=== PATIENT | female | born 1945 | race Caucasian/White ===

== ENCOUNTER 2020-07-06 12:57 | Inpatient (IN) | payer MEDICARE, SELFPAY ==
[2020-07-06] VITALS (19 sets, daily range): BP systolic 116–217; BP diastolic 49–116; PULSE 36–89; RESP 18–23; TEMP 36.6–37; O2SAT 90–100; BMI 34.2; BMI 32.5
--- NOTE | 2020-07-06 | CA_ITS ---
APPROVED REPORT EXAM: Comprehensive 2D, Doppler, and color-flow Echocardiogram Associate Artistic Director: Eri Silverman, RT(R) Ht: 5 ft 0 in Wt: 175lbs BSA: 1.76 BP: 217/116 mmHg Indications: bradycardia, passed out and fell with trauma to elbow 2D Dimensions LVOT 1.96 cm (M/F) 1.5-2.5 M-Mode Dimensions RVDd 2.11 cm (0.9-2.6) LA Diam 4.26 cm (1.9-4.0) LVDd 4.26 cm (3.5-5.7) Ao Diam 2.68 cm (2.0-3.7) LVDs 3.55 cm (3.5-5.7) IVSd 1.07 cm (0.6-1.1) PWd 0.97 cm (0.6-1.1) EF (Teich) 35.30% FS 16.70% EDV (Teich) 81.30 mL ESV (Teich) 52.60 mL LV Diastology E Decel Time 193.00 (160-240 msec) E/A Ratio 1.3 MED E' 6.50 (< 7 cm/sec) E'/MED E' Ratio 19.97 (>14) LAT E' 14.40 (<10 cm/sec) E/LAT E' Ratio 9.01 (>14) Mitral Valve MV E Max Brad. 130.00 (40-130 cm/s) MV A Velocity 99.00 (40-130 cm/s) E/A Ratio 1.31 MV Decel. Time 193.00 (160-240 ms) MV PHT 57.00 ms Tricuspid Valve TR P. Velocity 375.00 cm/s RAP Estimate 10.00 mmHg RVSP 66.40 mmHg Left Ventricle Left atrium is mildly enlarged, left ventricle is normal size, mild concentric left ventricular hypertrophy, visually estimated ejection fraction approximately 50% with no obvious regional wall motion abnormality, endocardial surfaces are poorly visualized. Diastolic parameters are inconclusive. Right Ventricle Right atrium and right ventricle are normal size and contractility. Aortic Valve Aortic valve is thickened and calcified without aortic stenosis or aortic insufficiency. Mitral Valve Mitral valve leaflets are minimally thickened, there is mild mitral regurgitation. Tricuspid Valve Tricuspid valve is grossly normal, there is mild tricuspid regurgitation, tricuspid regurgitation jet velocity is inadequate for calculation of the right ventricular systolic pressure. Pulmonic Valve Pulmonic valve is poorly visualized. Great Vessels Aortic root is normal size. Pericardium No significant pericardial effusion noted. Conclusion 1. Mildly enlarged left atrium, normal left ventricular size, mild concentric left ventricular hypertrophy, visually estimated ejection fraction 50% with no obvious regional wall motion abnormality, endocardial surfaces are poorly visualized, diastolic parameters are inconclusive. 2. Mild mitral and tricuspid regurgitation. 3. No significant pericardial effusion noted. Electronically signed by : Franky Stoddard, 07/06/2020 19:55:12
--- NOTE | 2020-07-06 | IR_ITS ---
APPROVED REPORT Patient Location: [facility] Physiologist: CYNTHIA Moreno RT (R) PROCEDURES 1. Pocket formation for biventricular pacemaker generator with cardiac resynchronization/defibrillator therapy. 2. Placement of atrial sensing and pacing lead into the right atrial appendage. 3. Placement of a right ventricular sensing, pacing and shocking lead in the right ventricular apex. 4. Placement of left ventricular sensing pacing lead via the coronary sinus. 5. Permanent cardiac resynchronization therapy with ICD implantation/biventricular pacemaker. INDICATION Syncope, Ventricular Fibrilation arrest, Sudden Cardiac Survivor, Ejection Fraction 45-50%, 3rd degree AV block Informed consent was obtained prior to the procedure. COMPLICATIONS None Estimated Blood Loss: Less than 10 mls TECHNIQUE 1% Lidocaine with epinephrine used to anesthetized the left anterior aspect of the chest. Scalpel was used to make the initial cutaneous incision while electrocautery was used to dissect down tinto the fascia. The fascia was lifted off the pectoralis muscle and digitally manipulated creating a pocket for the defibrillator. The patient was then placed in Trendelenburg position and the subclavian vein was accessed 3 times via the Selinger technique. A 8 Mosotho sheath was placed under fluoroscopic guidance into the subclavian vein. The dilator was removed from the sheath. Using fluoroscopic guidance, the ventricular lead was placed into the right ventricular apex, screwed and secured into place. Electronic interrogation proved acceptable thresholds and voltage within the lead. Using 3-0 silk, the ventricular lead was then secured into place and sheath peeled away. Following this, a 9.5 Mosotho sheath and dilator was then placed over one of the wires while keeping the other wire in place within the subclavian vein. The dilator was removed from the sheath. Using fluoroscopic guidance, contrast was used to visualize the coronary sinus, the left ventricular lead was placed into the coronary sinus. Electronic interrogation proved acceptable thresholds and voltage within the lead. Using 3-0 silk, the left ventricular lead was then secured into place and sheath peeled away.An additional 6 Mosotho fresh sheath and dilator was placed over the existing wire. Using fluoroscopic guidance, the atrial lead was then placed into the right atrial appendage and screwed and secured in place. Electrical interrogation demonstrated acceptable thresholds and voltage number. The atrial lead was then secured into place using 3-0 silk and sheath peeled away. 1 gram of Ancef was used to flush the pocket. All 3 leads were connected to generator and tested via computer. The defibrillator then secured to the fascia. Monocryl was used to close the subcutaneous layers while norma were used to close the cutaneous layer. A pressure dressing was placed and the patient was transferred to the postop holding area in stable condition for postoperative care. INTERROGATION Generator Model number: VIGILANT X4 [employer]IOR [employer] DIRECTOR-D, G247 Generator Serial number: [id number] Atrial lead model number: INGEVITY+, 7840 Atrial lead serial number: [id number] P-wave: 3.0mV Impedence: 450 ohms Threshold: 1.0V@0.4ms Left Ventricular lead model number: ACUTITY X4 SPIRAL 86cm, 4674 Left Ventricular lead serial number: [id number] Impedence: 39 ohms Threshold: 1.0V@0.4ms Right Ventricular lead model number: KNIGHTSEN 4-FRONT 59cm, 0675 Right Ventricular lead serial number: [id number] R-wave: 12.0mV Impedence: 850 ohms Threshold: 1.0V@0.4ms Pacing Parameters: Mode: DDDR Base/Max Track: 60/130 ppm ICD Rate Cutoffs: VT: 170bpm, 5.0
--- NOTE | 2020-07-06 13:09 | XR_ITS ---
PROCEDURE: XR HUMERUS LT CLINICAL INDICATION: fall, elbow pain COMPARISON: CR XR ELBOW LT MIN 3V from 07/06/2020 FINDINGS: There is posterior dislocation of the elbow. There is an avulsion fracture between the proximal aspect of the radius and ulna. Bone of origin is undetermined based on this exam. The elbow films are very limited due to inability to properly position the patient. It does appear that there is a avulsion fracture of the olecranon process. However, this is F best questionable. There may also be an avulsion fracture of the lateral epicondyle of the distal humerus. Postreduction images suggested for more thorough evaluation. IMPRESSION: Complete elbow dislocation with the radius and ulna dislocated laterally/posteriorly with questionable avulsion fracture of the olecranon and lateral epicondyle. Recommend follow-up study once the elbow is relocated. Dictated by: Bernabe Casper MD 07/06/2020 14:13 Bernabe Casper MD in [facility] 07/06/2020 14:13
--- NOTE | 2020-07-06 13:09 | XR_ITS ---
PROCEDURE: XR TIBIA FIBULA LT 2V CLINICAL INDICATION: fall Pain COMPARISON: No exams were available for comparison FINDINGS: No fracture or dislocation. No lytic or blastic change. There is normal mineralization. Status post total knee replacement. Good alignment Other findings:None. IMPRESSION: Status post total knee replacement otherwise negative Dictated by: Bernabe Casper MD 07/06/2020 14:09 Bernabe Casper MD in [facility] 07/06/2020 14:09
--- NOTE | 2020-07-06 13:10 | HMH.EDGENADL ---
ED Disposition Clinical Impression: Heart block, Polymorphic ventricular tachycardia, Cardiac arrest Elbow dislocation Qualifiers: Encounter type: initial encounter Laterality: left Qualified Code(s): S53.105A - Unspecified dislocation of left ulnohumeral joint, initial encounter Disposition: Admitted As Inpatient Condition on Discharge: Critical - Critical Care Critical Care Time: Yes Attestation: On , the high probability of a clinically significant, sudden or life threatening deterioration of the following system(s) required my full and direct attention, intervention and personal management. The time I documented below is in addition to time spent performing reported procedures but includes the following listed in this critical care notation. Total Critical Care Time: 45 Vital system(s) involved:: Circulatory Failure, Central Nervous System, Metabolic Failure My critical care processes included: Assessment & monitoring of V/S, Initial and Re-exams, Data Review/Interpretation, Coordinating Care, Medication Orders and management, Documentation Medical Decision Making - Medical Records Medical records reviewed: Yes: I reviewed the patient's medical records. - Jhoan Inquiry Pt receiving controlled substance: No Vital Signs: 07/06/20 12:59 07/06/20 13:43 07/06/20 14:37 Temperature 98.0 F Temperature Source Oral Pulse Rate Pulse Rate [Right Radial] 36 L 43 L 43 L Respiratory Rate 18 Blood Pressure Blood Pressure [Right Arm] 212/95 H 217/116 H 167/107 H Blood Pressure Mean [Right Arm] 134 149 127 Blood Pressure Source [Right Arm] Automatic Cuff Automatic Cuff Automatic Cuff Blood Pressure Position [Right Arm] Sitting Sitting Sitting 02 Sat by Pulse Oximetry 98 95 95 Oxygen Delivery Method Room Air Room Air Room Air 07/06/20 14:59 07/06/20 15:35 Temperature 98.0 F Temperature Source Oral Pulse Rate 37 L Pulse Rate [Right Radial] 37 L Respiratory Rate 18 Blood Pressure 204/74 H Blood Pressure [Right Arm] 204/74 H Blood Pressure Mean [Right Arm] 117 Blood Pressure Source [Right Arm] Automatic Cuff Blood Pressure Position [Right Arm] Sitting 02 Sat by Pulse Oximetry 96 Oxygen Delivery Method Room Air Room Air - Lab Data Lab Results 07/06/20 13:19: WBC 14.8 H, RBC 4.22, Hgb 12.5, Hct 39.3, MCV 93.2, MCH 29.5, MCHC 31.7 L, RDW 14.0, Plt Count 396, MPV 8.6, Neut % (Auto) 83.6 H, Lymph % (Auto) 11.5, [place] % (Auto) 3.5, Eos % (Auto) 0.7, Baso % (Auto) 0.7, Neut # (Auto) 12.4 H, Lymph # (Auto) 1.7, [place] # (Auto) 0.5, Eos # (Auto) 0.1, Baso # (Auto) 0.1 07/06/20 13:19: Sodium 145, Potassium 3.8, Chloride 111 H, Carbon Dioxide 23, Anion Gap 14.8, BUN 20 H, Creatinine 1.10 H, Estimated Creat Clear 55, Estimated GFR 48 L, Est GFR ( Amer) 58 L, Glucose 138 H, Calcium 10.2, Troponin I 0.01 07/06/20 13:19: Sodium 145, Potassium 3.9, Chloride 112 H, Carbon Dioxide 23, Anion Gap 13.9, BUN 21 H, Creatinine 1.10 H, Estimated Creat Clear 55, Estimated GFR 48 L, Est GFR ( Amer) 58 L, Glucose 136 H, Calcium 10.1, Magnesium 1.8, Total Bilirubin 0.5, AST 20, ALT 12, Alkaline Phosphatase 115, Total Protein 7.6, Albumin 4.5, Globulin 3.1, Albumin/Globulin Ratio 1.5 07/06/20 13:19: Phosphorus 4.4 07/06/20 13:19: SARS-CoV-2 IgG Ab (Rapid) Positive A, SARS-CoV-2 IgM Ab (Rapid) Negative Result diagrams: 07/06/20 13:19 07/06/20 13:19 Orders (Tests/Meds): ED MEDICATIONS Generic Name Dose Route Start Last Admin Trade Name Freq PRN Reason Stop Dose Admin Oxycodone/Acetaminophen 1 each 07/06/20 15:08 Oxycodone 5mg W/Apap 325mg Tablet PO 08/05/20 15:07 Q4HP PRN Moderate Pain Oxycodone/Acetaminophen 2 each 07/06/20 15:08 Oxycodone 5mg W/Apap 325mg Tablet PO 08/05/20 15:07 Q4HP PRN Severe Pain Discontinued Medications Generic Name Dose Route Start Last Admin Trade Name Freq PRN Reason Stop Dose Admin Atropine Sulfate 0.5 mg 07/06/20 14:54 07/06/20 15:12
--- NOTE | 2020-07-06 13:13 | ECG_ITS ---
APPROVED REPORT Exam: Resting ECG HR:35 bpm ECG Measurements Heart Rate 35 AXES WA P 60 QRSd 80 QRS 38 QT 556 T 94 QTc 424 Conclusion Marked sinus bradycardia with AV dissociation and Junctional bradycardia with sinus/atrial capture Anterior infarct, age undetermined ST & T wave abnormality, consider lateral ischemia Abnormal ECG Electronically signed by : Miguel Ángel Patel, 07/06/2020 20:52:20
--- NOTE | 2020-07-06 13:25 | PC.NURSE ---
notified ER pt HR Is 36, no new orders given at this time, pt is on alarm security or surveillance monitor. will continue to monitor
--- NOTE | 2020-07-06 13:31 | PC.NURSE ---
rad at for portable xrays
[2020-07-06 13:52] LABS: Chloride 111 mmol/L (98-107); Potassium 3.8 mmoL/L (3.5-5.1); Sodium 145 mmol/L (136-145)
[2020-07-06 13:55] LABS: Blood Urea Nitrogen 20 mg/dl (7-17); Creatinine Clearance Estimated 55 mL/min (50-200); Estimated Glomerular Filt Rate 48 ml/min (>60); GFR (African American) 58 ML/MIN (>60)
[2020-07-06 13:56] LABS: Anion Gap 14.8 mEq/L (5-15); Calcium 10.2 mg/dl (8.4-10.2); Carbon Dioxide 23 mmol/L (22.0-30.0); Glucose 138 mg/dl (74-100)
[2020-07-06 14:10] LABS: Troponin I 0.01 ng/ml (0.00-0.034)
[2020-07-06 14:22] LABS: Basophils # 0.1 K/mm3 (0-0.2); Basophils % 0.7 % (0.1-2.0); Eosinophils # 0.1 K/mm3 (0.0-0.4); Eosinophils % 0.7 % (0.1-12.0); Hematocrit 39.3 % (37.0-47.0); Hemoglobin 12.5 g/dL (12.2-16.2); Lymphocytes # 1.7 K/mm3 (0.7-4.5); Lymphocytes % 11.5 % (10-50); Mean Corpuscular HGB Conc 31.7 g/dL (31.8-35.4); Mean Corpuscular Hemoglobin 29.5 pg (27.0-31.2); Mean Corpuscular Volume 93.2 fl (81-99); Mean Platelet Volume 8.6 fl (7.4-10.4); Monocytes # 0.5 K/mm3 (0.1-1.0); Monocytes % 3.5 % (1.7-9.3); Neutrophils # 12.4 K/mm3 (1.8-7.8); Neutrophils % 83.6 % (37.0-80.0); Platelet Count 396 K/mm3 (142-424); Red Blood Count 4.22 M/mm3 (4.20-5.40); White Blood Count 14.8 K/mm3 (4.8-10.8)
--- NOTE | 2020-07-06 14:27 | PC.NURSE ---
pt noted to be in a run of torsades on the monitor at the desk staff to pts room, CPR initiated, pt moved to larger room, placed on zoll monitor with defib pads in place, ER at . Pulse checked when defib pads were in place, pulse present, pt HR noted to be 200 on monitor, pt has agonal respirations, BVM breaths given per staff. at pulse check, pt HR noted to be 41, atropine 1mg given per IV, IVF initiated. Pt more alert, breathing on her own, O2 per NC in place at 2L new ekg performed. will continue to monitor.
--- NOTE | 2020-07-06 14:31 | ECG_ITS ---
APPROVED REPORT Exam: Resting ECG HR:45 bpm ECG Measurements Heart Rate 45 AXES AK P 63 QRSd 92 QRS 46 QT 554 T 79 QTc 479 Conclusion Marked sinus bradycardia with AV dissociation and Junctional rhythm with sinus/atrial capture ST & T wave abnormality, consider anterior ischemia Prolonged QT Abnormal ECG Electronically signed by : Miguel Ángel Patel, 07/06/2020 20:51:59
[2020-07-06 14:34] LABS: Chloride 112 mmol/L (98-107); Potassium 3.9 mmoL/L (3.5-5.1); Sodium 145 mmol/L (136-145)
[2020-07-06 14:36] LABS: Alanine Aminotransferase 12 U/L (12-78); Aspartate Amino Transferase 20 U/L (14-36); Blood Urea Nitrogen 21 mg/dl (7-17); Creatinine Clearance Estimated 55 mL/min (50-200); Estimated Glomerular Filt Rate 48 ml/min (>60); GFR (African American) 58 ML/MIN (>60); Phosphorous 4.4 mg/dl (2.5-4.5)
--- NOTE | 2020-07-06 14:36 | XR_ITS ---
PROCEDURE: XR ELBOW LT 2V CLINICAL INDICATION: post reduction COMPARISON: CR XR ELBOW LT MIN 3V from 07/06/2020 FINDINGS: 1437 hours. There is persistent lateral dislocation of the elbow. Avulsion fragments are present along the radial head and at the olecranon region. IMPRESSION: Persistent lateral elbow dislocation with avulsion fractures Dictated by: Bernabe Casper MD 07/06/2020 15:00 Bernabe Casper MD in [place] 07/06/2020 15:00
[2020-07-06 14:37] LABS: Albumin Level 4.5 g/dl (3.5-5.0); Albumin/Globulin Ratio 1.5 (1.1-1.8); Alkaline Phosphatase 115 U/L (38-126); Anion Gap 13.9 mEq/L (5-15); Bilirubin,Total 0.5 mg/dl (0.2-1.3); Calcium 10.1 mg/dl (8.4-10.2); Carbon Dioxide 23 mmol/L (22.0-30.0); Globulin 3.1 g/dL (1.3-3.2); Glucose 136 mg/dl (74-100); Magnesium 1.8 mg/dl (1.6-2.3); Total Protein,Serum 7.6 g/dl (6.3-8.2)
--- NOTE | 2020-07-06 14:37 | PC.NURSE ---
family at bedside at this time.
--- NOTE | 2020-07-06 14:55 | PC.NURSE ---
Dr Galeano returned call.
--- NOTE | 2020-07-06 15:04 | PC.NURSE ---
JERRY FINCH speaking with Dr. Galeano again at this time
--- NOTE | 2020-07-06 15:07 | PC.NURSE ---
CV lab staff at
--- NOTE | 2020-07-06 15:09 | XR_ITS ---
PROCEDURE: XR CHEST PORTABLE CLINICAL HISTORY: Confirm pacemaker/AID placement COMPARISON: No exams were available for comparison FINDINGS: Status post biventricular pacemaker placement with right atrial lead from the left subclavian approach. Leads appear in good position. There is no evidence of pneumothorax. There is mild cardiomegaly. Lungs are clear bilaterally. No acute bony findings. IMPRESSION: As above, status post pacemaker placement from left subclavian approach without evidence of pneumothorax and with good lead placement. Dictated by: Bernabe Casper MD 07/06/2020 17:47 Bernabe Casper MD in [facility] 07/06/2020 17:47
--- NOTE | 2020-07-06 15:30 | XR_ITS ---
PROCEDURE: XR ELBOW LT MIN 3V CLINICAL INDICATION: post reduction Second post reduction COMPARISON: CR XR ELBOW LT MIN 3V from 07/06/2020 CR XR ELBOW LT 2V from 07/06/2020 FINDINGS: There has been interval relocation of the elbow. There is now in good alignment. There is a faint linear calcific density along the lateral epicondylar region consistent with an avulsion fracture of the lateral epicondyle. IMPRESSION: Relocation of the elbow with avulsion fracture of the lateral epicondyle Dictated by: Bernabe Casper MD 07/06/2020 17:21 Bernabe Casper MD in [place] 07/06/2020 17:21
--- NOTE | 2020-07-06 15:35 | PC.NURSE ---
pt to laborer hoisting
--- NOTE | 2020-07-06 15:45 | SUR.PREOP ---
Spoke with pt daughter via phone to obtain consent for AICD, Dr gonzalez also confirmed consent with pt.
[2020-07-06 15:50] LABS: Coronavirus 19 IgG Antibody Positive (Negative); Coronavirus 19 IgM Antibody Negative (Negative)
--- NOTE | 2020-07-06 15:51 | HMH.CNCARD ---
<HungFahad alvarez - Last Filed: 07/06/20 21:36> Meds Home Medications Medication Instructions Recorded Confirmed Type Simvastatin [Zocor 20mg] 20 mg PO HS 07/06/20 07/06/20 History gemfibroziL [Gemfibrozil] 600 mg PO BID 07/06/20 07/07/20 History lisinopriL [Lisinopril] 20 mg PO DAILY 07/06/20 07/06/20 History Allergies Allergy/AdvReac Type Severity Reaction Status Date / Time codeine Allergy Verified 07/06/20 13:41 Exam Vital signs and Labs for Last 24 Hours: Temp Pulse Resp BP Pulse Ox 98.0 F 72 20 154/97 H 98 07/06/20 15:35 07/06/20 18:45 07/06/20 18:45 07/06/20 18:45 07/06/20 19:21 Laboratory Results - last 24 hr 07/06/20 13:19: WBC 14.8 H, RBC 4.22, Hgb 12.5, Hct 39.3, MCV 93.2, MCH 29.5, MCHC 31.7 L, RDW 14.0, Plt Count 396, MPV 8.6, Neut % (Auto) 83.6 H, Lymph % (Auto) 11.5, [place] % (Auto) 3.5, Eos % (Auto) 0.7, Baso % (Auto) 0.7, Neut # (Auto) 12.4 H, Lymph # (Auto) 1.7, [place] # (Auto) 0.5, Eos # (Auto) 0.1, Baso # (Auto) 0.1 07/06/20 13:19: Sodium 145, Potassium 3.8, Chloride 111 H, Carbon Dioxide 23, Anion Gap 14.8, BUN 20 H, Creatinine 1.10 H, Estimated Creat Clear 55, Estimated GFR 48 L, Est GFR ( Amer) 58 L, Glucose 138 H, Calcium 10.2, Troponin I 0.01 07/06/20 13:19: Sodium 145, Potassium 3.9, Chloride 112 H, Carbon Dioxide 23, Anion Gap 13.9, BUN 21 H, Creatinine 1.10 H, Estimated Creat Clear 55, Estimated GFR 48 L, Est GFR ( Amer) 58 L, Glucose 136 H, Calcium 10.1, Magnesium 1.8, Total Bilirubin 0.5, AST 20, ALT 12, Alkaline Phosphatase 115, Total Protein 7.6, Albumin 4.5, Globulin 3.1, Albumin/Globulin Ratio 1.5 07/06/20 13:19: Phosphorus 4.4 07/06/20 13:19: SARS-CoV-2 IgG Ab (Rapid) Positive A, SARS-CoV-2 IgM Ab (Rapid) Negative I & O for Last 24 hours: Intake & Output 07/03/20 07/04/20 07/05/20 07/06/20 23:59 23:59 23:59 23:59 Intake Total 180 / 180 Balance 180 / 180 Weight 167 lb Microbiology Reports for the Last 24 Hours: Microbiology 07/06/20 14:08 Nasopharyngeal Coronavirus COVID-19 PCR - Final Assessment and Plan (1) Sudden cardiac arrest Status: Acute Category: Medical Code(s): I46.9 - Cardiac arrest, cause unspecified (2) Torsades de pointes Status: Acute Category: Medical Code(s): I47.2 - Ventricular tachycardia (3) Third degree atrioventricular block determined by electrocardiography Status: Acute Category: Medical Code(s): I44.2 - Atrioventricular block, complete (4) Dislocation of left elbow Status: Acute Category: Medical Code(s): S53.105A - Unspecified dislocation of left ulnohumeral joint, initial encounter (5) Olecranon fracture Status: Acute Category: Medical Code(s): S52.023A - Displaced fracture of olecranon process without intraarticular extension of unspecified ulna, initial encounter for closed fracture (6) Hypertension Status: Acute Category: Medical Code(s): I10 - Essential (primary) hypertension (7) CKD (chronic kidney disease) stage 3, GFR 30-59 ml/min Status: Acute Category: Medical Code(s): N18.30 - Chronic kidney disease, stage 3 unspecified <Jamil Bailey - Last Filed: 07/08/20 08:52> History of Present Illness Consult date: 07/06/20 Requesting physician: Fahad Auguste Chief complaint: Third degree heart block, Sudden cardiac arrest Additional Medical History:: 1. Sudden cardiac arrest/torsades de pointes/third degree AV block A. BiV AICD, 07/06/2020 2. Syncope with left ulna/radius dislocation and possible avulsion fracture of olecranon and epicondyle, 07/06/2020 3. S/p Left total knee replacement 4. HTN 5. Hyperlipidemia History of present illness: 75-year-old female presenting to the emergency department with left arm pain after a fall. She was walking in her driveway when she turned, lost her balance and fell to the ground. She had immediate pain near her left elbow. Unable to straighten her arm. Pain is described as sharp and intense. Loc
--- NOTE | 2020-07-06 15:59 | PC.NURSE ---
dr. quinteros agrees to admit pt at this time
--- NOTE | 2020-07-06 16:01 | PC.NURSE ---
notified storage facility housekeeper of admission at this time notified cath lab tech staff that pt is being admitted and storage facility housekeeper is getting pt a bed
--- NOTE | 2020-07-06 17:49 | HMH.ANESCL ---
[facility] Anesthesia Checklist - Patient Identification Patient Identification: Arm Band - Structural Data Admitted From: Emergency Dept Planned Operative Procedure/s: Biventricular Pacemaker/AICD Consent for Planned Operative Procedure(s) Verified: Yes Verified Documents: Surgical Consent, History and Physical - NPO Status Verified Time NPO: 00:00 - Additional verifications Anesthesia Reactions: No - Airway Assessment C-Spine Mobility Assessed: Yes (mp2) TMJ Mobility Assessed: Yes Dentition: Poor Dentition - Neurological Assessment Level of Consciousness: Awake, Alert - Anesthesia Plan Anesthesia Risk discussed: Yes Anesthesia Plan: Verified ASA Class: III (e) Anesthesia Type: MAC [facility] History I have reviewed the patient's past medical history: Yes Medical History: Reports:: Hypertension, Renal Insufficiency *Have you ever received a pneumonia vaccine?: No *Have you received a flu vaccine this season?: No Anesthesia experience/problems:: nac Other Surgeries: Yes: Other - *Social History Substance Use Type: denies use *Occupational Status:: other *Travel in the last 8 weeks: None Family Hx:: No significant family history
--- NOTE | 2020-07-06 19:14 | PC.NURSE ---
WENT TO FLOOR AND PUT ORTHO GLASS SPLINT ON AND SLING IN PLACE
--- NOTE | 2020-07-06 21:36 | HMH.HP ---
*Admission Date: 07/06/20 *Chief complaint: complete heart block, torsades de pointes, elbow dislocation *History of present illness: 75-year-old female presenting to the emergency department with left arm pain after a fall. She was walking in her driveway when she turned, lost her balance and fell to the ground. She had immediate pain near her left elbow. Unable to straighten her arm. Pain is described as sharp and intense. Located more on the medial epicondyle but radiating into her upper arm and her forearm. No numbness, weakness, tingling in her left hand. She is right-handed. Did not strike her head. No other injuries in the fall. Has not taken any medications for pain. Denies recent syncopal episodes. No preceding chest pain, palpitations, shortness of breath, other concerns. The above per ER MD, Dr. Morales While in ER (per nursing notes): pt noted to be in a run of torsades on the monitor at the desk staff to pts room, CPR initiated, pt moved to larger room, placed on zoll monitor with defib pads in place, ER MD at . Pulse checked when defib pads were in place, pulse present, pt HR noted to be 200 on monitor, pt has agonal respirations, BVM breaths given per staff. at pulse check, pt HR noted to be 41, atropine 1mg given per IV, IVF initiated. Pt more alert, breathing on her own, O2 per NC in place at 2L new ekg performed. EKG's show third degree AV block with rates in the 30's. Cardiology called with plans for BiV AICD today. above is per cardiology Patient generally enjoys good health. She sees a physician in [place] yearly, history of hypertension and dyslipidemia. No cardiac history. Lives in [facility], . [facility] History Medical History: Reports:: Hyperlipidemia, Hypertension, Internal Pacemaker, Renal Insufficiency Denies:: Cancer, Diabetes Mellitus Type 1, Diabetes Mellitus Type 2, MRSA *Have you ever received a pneumonia vaccine?: Yes *Have you received a flu vaccine this season?: No Other Medical History: Reports: Arthritis, Cataracts Anesthesia experience/problems:: nac Laterality Cases: Left: Arthroscopy Knee Other Surgeries: Yes: Pacemaker, Other Amputation: No - *Social History Last grade of school completed: High school graduate Smoking Status: Never smoker Alcohol Intake: never Substance Use Type: denies use *Occupational Status:: retired Household Members: none *Travel in the last 8 weeks: None Family Hx:: Asthma, Diabetes Review of Systems - Constitutional Reports weakness - Eyes Denies change in vision - ENT Reports dizziness, Denies abnormal hearing - *Cardiovascular Reports irregular heart rhythm, Reports fainting, Denies chest pain - *Respiratory Denies chest congestion - *Gastrointestinal Denies abdominal pain - *Genitourinary Denies painful urination - *Musculoskeletal Reports joint pain, Reports joint swelling, Reports limited joint movement - Integumentary/Breasts Denies yellowing of the skin - *Neurologic Reports abnormal walking, Reports dizziness, Denies abnormal hearing, Denies abnormal speech, Denies behavioral changes, Denies numbness, Denies weakness - Psychiatric Denies behavioral changes - Endocrine Reports rapid, pounding, or irregular heartbeat - Hematologic/Lymphatic Denies easy bleeding - Allergic/Immunologic Denies hives Meds Home Medications Medication Instructions Recorded Confirmed Type Simvastatin [Zocor 20mg] 20 mg PO HS 07/06/20 07/06/20 History gemfibroziL [Gemfibrozil] 600 mg PO DAILY 07/06/20 07/06/20 History lisinopriL [Lisinopril] 20 mg PO DAILY 07/06/20 07/06/20 History Allergies Allergy/AdvReac Type Severity Reaction Status Date / Time codeine Allergy Verified 07/06/20 13:41 Exam Vital signs and Labs for Last 24 Hours: Temp Pulse Resp BP Pulse Ox 98.0 F 72 20 154/97 H 98 07/06/20 15:35 07/06/20 18:45 07/06/20 18:45 07/06/20 18:45 07/06/20 19:21 Laboratory Results - l
[2020-07-07] VITALS (7 sets, daily range): BP systolic 127–181; BP diastolic 72–78; PULSE 60–80; RESP 16–22; TEMP 36.7–37.2; O2SAT 94–100; BMI 32.8
[2020-07-07 06:23] LABS: Eosinophils % 0.4 % (0.1-12.0); Mean Corpuscular Volume 93.6 fl (81-99); Mean Platelet Volume 8.3 fl (7.4-10.4); Red Cell Distribution Width 14.1 % (11.5-17.5)
--- NOTE | 2020-07-07 06:32 | PC.NURSE ---
Post op day 1 r/t pacemaker placement, has ortho and cardiac consults this AM; has been NPO since midnight. Patient VS WNL, shows no s/s of acute distress at this time. Will continue to monitor.
[2020-07-07 06:41] LABS: Blood Urea Nitrogen 18 mg/dl (7-17); Calcium 9.1 mg/dl (8.4-10.2); Carbon Dioxide 22 mmol/L (22.0-30.0); Chloride 110 mmol/L (98-107); Creatinine Clearance Estimated 57 mL/min (50-200); Estimated Glomerular Filt Rate 54 ml/min (>60); GFR (African American) 65 ML/MIN (>60); Glucose 90 mg/dl (74-100); Sodium 140 mmol/L (136-145)
[2020-07-07 06:55] LABS: Basophils % 0.3 % (0.1-2.0); Hematocrit 33.5 % (37.0-47.0); Lymphocytes # 1.4 K/mm3 (0.7-4.5); Lymphocytes % 13.8 % (10-50); Mean Corpuscular HGB Conc 31.5 g/dL (31.8-35.4); Mean Corpuscular Hemoglobin 29.5 pg (27.0-31.2); Monocytes # 0.5 K/mm3 (0.1-1.0); Monocytes % 5.5 % (1.7-9.3); Neutrophils # 7.9 K/mm3 (1.8-7.8); Platelet Count 303 K/mm3 (142-424); Red Blood Count 3.58 M/mm3 (4.20-5.40); White Blood Count 9.8 K/mm3 (4.8-10.8)
[2020-07-07 07:10] LABS: Hemoglobin 10.6 g/dL (12.2-16.2)
--- NOTE | 2020-07-07 07:42 | P.CONPHA_ITS ---
[facility] VTE Monitoring - Patient Demographics Admission date: 07/06/20 Report Date: 07/07/20 Time: 07:42 Allergies/Adverse Reactions: Patient Allergies codeine Allergy (Verified 07/06/20 13:41) Height: 1.52 m Weight: 75.807 kg Patient Problems: Current Active Problems Sudden cardiac arrest (Acute) Torsades de pointes (Acute) Third degree atrioventricular block determined by electrocardiography (Acute) Dislocation of left elbow (Acute) Olecranon fracture (Acute) Hypertension (Acute) CKD (chronic kidney disease) stage 3, GFR 30-59 ml/min (Acute) Heart block (Acute) Elbow dislocation (Acute) Polymorphic ventricular tachycardia (Acute) Cardiac arrest (Acute) - VTE Risk Labs: VTE Related Lab Results Hgb 10.6 g/dL (12.2-16.2) L D 07/07/20 05:58 Hct 33.5 % (37.0-47.0) L 07/07/20 05:58 Plt Count 303 K/mm3 (142-424) 07/07/20 05:58 BUN 18 mg/dl (7-17) H 07/07/20 05:58 Creatinine 1.00 mg/dl (0.52-1.04) 07/07/20 05:58 Estimated Creat Clear 57 mL/min (50-200) 07/07/20 05:58 VTE Score: 3 VTE Risk Level: Low Risk - Prophylaxis VTE Prophylaxis Ordered?: Yes Types of VTE Prophylaxis: TEDS Knee High Location of Applied Device: Bilateral Lower Extremeties
--- NOTE | 2020-07-07 07:42 | HMH.PHAINT ---
MEDICATION RECONCILIATION COMPLETED ON PATIENT USING EXTERNAL FILL HISTORY FROM PHARMACY. -JUAN MIGUEL PINO, MITCHELLD
--- NOTE | 2020-07-07 08:44 | HMH.PNCARD ---
Subjective Date: 07/07/20 Time: 08:35 Principal diagnosis: Syncope Interval history: 75-year-old female presented to the [facility] after experiencing syncopal episode at home. Patient was noted at that time to have a heart rate in the 30s. While in the ED, compliance monitor revealed third-degree heart block, torsades de pointes which led to sudden cardiac arrest. Patient underwent BIV AICD placement due to third-degree heart block. Patient is alert and oriented appropriately x4. Patient denies chest pain, tightness or pressure. Patient is resting quietly. During the syncopal episode, patient fell fracturing her ulna radius of the left. This will be managed by orthopedic. Patient denies any dizziness or palpitations. traffic monitor specialist reveals paced rhythm with a heart rate of 70 bpm. BP is slightly elevated at this time. Patient states she has been under a lot of stress due to passing away in December. Echocardiogram revealed EF 50% with no obvious regional wall motion abnormality. Mild MR and TR regurgitation noted. PPM dressing is dry and intact. Patient was instructed no heavy lifting of the left arm. No lifting the left arm over shoulder head due to AICD placement. Patient states she has no Internet or phone service at her home. Patient will need to come to the office for pacemaker clinic on a monthly basis due to AICD. Echo:Conclusion 1. Mildly enlarged left atrium, normal left ventricular size, mild concentric left ventricular hypertrophy, visually estimated ejection fraction 50% with no obvious regional wall motion abnormality, endocardial surfaces are poorly visualized, diastolic parameters are inconclusive. 2. Mild mitral and tricuspid regurgitation. 3. No significant pericardial effusion noted. Discussed plan of care with Dr. Galeano. Patient will be set up for a left heart catheterization in the a.m. (07/08/20) due to the syncopal episode and possibility of blockages of coronary arteries. Discussed risk and benefits with patient and family at the bedside. Patient verbalized understanding and is agreeable to procedure in the a.m. Patient will need to be n.p.o. after midnight tonight. Will start patient on bisoprolol 10 mg p.o. at night due to hypertension. Please continue to monitor as patient status. Please notify cardiology of any change in patient status. Thank you for allowing cardiology to participate in the care of this patient. Exam Vital signs and Labs for Last 24 Hours: Temp Pulse Resp BP Pulse Ox 98.0 F 70 17 158/76 H 99 07/07/20 04:00 07/07/20 04:00 07/07/20 04:00 07/07/20 04:00 07/07/20 04:00 Laboratory Results - last 24 hr 07/06/20 13:19: WBC 14.8 H, RBC 4.22, Hgb 12.5, Hct 39.3, MCV 93.2, MCH 29.5, MCHC 31.7 L, RDW 14.0, Plt Count 396, MPV 8.6, Neut % (Auto) 83.6 H, Lymph % (Auto) 11.5, Brule % (Auto) 3.5, Eos % (Auto) 0.7, Baso % (Auto) 0.7, Neut # (Auto) 12.4 H, Lymph # (Auto) 1.7, Brule # (Auto) 0.5, Eos # (Auto) 0.1, Baso # (Auto) 0.1 07/06/20 13:19: Sodium 145, Potassium 3.8, Chloride 111 H, Carbon Dioxide 23, Anion Gap 14.8, BUN 20 H, Creatinine 1.10 H, Estimated Creat Clear 55, Estimated GFR 48 L, Est GFR ( Amer) 58 L, Glucose 138 H, Calcium 10.2, Troponin I 0.01 07/06/20 13:19: Sodium 145, Potassium 3.9, Chloride 112 H, Carbon Dioxide 23, Anion Gap 13.9, BUN 21 H, Creatinine 1.10 H, Estimated Creat Clear 55, Estimated GFR 48 L, Est GFR ( Amer) 58 L, Glucose 136 H, Calcium 10.1, Magnesium 1.8, Total Bilirubin 0.5, AST 20, ALT 12, Alkaline Phosphatase 115, Total Protein 7.6, Albumin 4.5, Globulin 3.1, Albumin/Globulin Ratio 1.5 07/06/20 13:19: Phosphorus 4.4 07/06/20 13:19: SARS-CoV-2 IgG Ab (Rapid) Positive A, SARS-CoV-2 IgM Ab (Rapid) Negative 07/07/20 05:58: WBC 9.8 D, RBC 3.58 L, Hgb 10.6 L D, Hct 33.5 L, MCV 93.6, MCH 29.5, MCHC 31.5 L, RDW 14.1, Plt Count 303, MPV 8.3, Neut % (Auto) 80.0, Lymph % (Auto) 13.8, Brule % (Auto) 5.5
--- NOTE | 2020-07-07 09:34 | HMH.ACPN2 ---
Internal Medicine - PN: Subj *Date: 07/07/20 *Time: 16:57 Interval history: 75-year-old female patient sitting in bed resting quietly with eyes closed, awakens to verbal stimuli. She denies any chest pain or respiratory distress during the night. Sling intact to left upper extremity, dressing to left upper chest clean dry and intact. Patient says very few details in emergency department until late last night. Exam Vital signs and Labs for Last 24 Hours: Temp Pulse Resp BP Pulse Ox 98.4 F 71 16 181/76 H 97 07/07/20 08:00 07/07/20 08:00 07/07/20 08:00 07/07/20 08:00 07/07/20 08:00 Laboratory Results - last 24 hr 07/06/20 13:19: WBC 14.8 H, RBC 4.22, Hgb 12.5, Hct 39.3, MCV 93.2, MCH 29.5, MCHC 31.7 L, RDW 14.0, Plt Count 396, MPV 8.6, Neut % (Auto) 83.6 H, Lymph % (Auto) 11.5, Coryell % (Auto) 3.5, Eos % (Auto) 0.7, Baso % (Auto) 0.7, Neut # (Auto) 12.4 H, Lymph # (Auto) 1.7, Coryell # (Auto) 0.5, Eos # (Auto) 0.1, Baso # (Auto) 0.1 07/06/20 13:19: Sodium 145, Potassium 3.8, Chloride 111 H, Carbon Dioxide 23, Anion Gap 14.8, BUN 20 H, Creatinine 1.10 H, Estimated Creat Clear 55, Estimated GFR 48 L, Est GFR ( Amer) 58 L, Glucose 138 H, Calcium 10.2, Troponin I 0.01 07/06/20 13:19: Sodium 145, Potassium 3.9, Chloride 112 H, Carbon Dioxide 23, Anion Gap 13.9, BUN 21 H, Creatinine 1.10 H, Estimated Creat Clear 55, Estimated GFR 48 L, Est GFR ( Amer) 58 L, Glucose 136 H, Calcium 10.1, Magnesium 1.8, Total Bilirubin 0.5, AST 20, ALT 12, Alkaline Phosphatase 115, Total Protein 7.6, Albumin 4.5, Globulin 3.1, Albumin/Globulin Ratio 1.5 07/06/20 13:19: Phosphorus 4.4 07/06/20 13:19: SARS-CoV-2 IgG Ab (Rapid) Positive A, SARS-CoV-2 IgM Ab (Rapid) Negative 07/07/20 05:58: WBC 9.8 D, RBC 3.58 L, Hgb 10.6 L D, Hct 33.5 L, MCV 93.6, MCH 29.5, MCHC 31.5 L, RDW 14.1, Plt Count 303, MPV 8.3, Neut % (Auto) 80.0, Lymph % (Auto) 13.8, Coryell % (Auto) 5.5, Eos % (Auto) 0.4, Baso % (Auto) 0.3, Neut # (Auto) 7.9 H, Lymph # (Auto) 1.4, Coryell # (Auto) 0.5, Eos # (Auto) 0.0, Baso # (Auto) 0.0 07/07/20 05:58: Sodium 140, Potassium 4.0, Chloride 110 H, Carbon Dioxide 22, Anion Gap 12.0, BUN 18 H, Creatinine 1.00, Estimated Creat Clear 57, Estimated GFR 54 L, Est GFR ( Amer) 65, Glucose 90 D, Calcium 9.1 I & O for Last 24 hours: Intake & Output 07/04/20 07/05/20 07/06/20 07/07/20 23:59 23:59 23:59 23:59 Intake Total 180 / 180 120 / 120 Balance 180 / 180 120 / 120 Weight 167 lb 167 lb 2 oz Microbiology Reports for the Last 24 Hours: Microbiology 07/06/20 14:08 Nasopharyngeal Coronavirus COVID-19 PCR - Final - Constitutional no acute distress - *Routine HEENT Exam Head: Present: normocephalic Eye: Present: EOMI ENT: Present: mucous membranes moist - *Routine Neck Exam Present: supple, trachea midline. Absent: tracheal deviation - *Routine Respiratory Exam Present: CTA bilaterally. Absent: accessory muscle use - *Routine Cardiovascular Exam Present: RRR - *Routine Abdominal Exam Present: soft, normoactive bowel sounds. Absent: firm, rigid - *Routine Extremities Exam Present: pulses intact. Absent: cyanosis, edema, full ROM, calf tenderness Comments: Sling to left upper extremity - *Routine Skin Exam Present: dry, warm, wounds. Absent: intact, cyanosis Comments: Dressing to left upper chest clean dry and intact - *Routine Neurological Exam Present: alert, oriented X3. Absent: normal reflexes, pronator drift - Routine Psychiatric Exam Present: normal affect, normal thought process. Absent: auditory hallucinations, visual hallucinations Assessment and Plan (1) Sudden cardiac arrest Status: Acute Category: Medical Code(s): I46.9 - Cardiac arrest, cause unspecified (2) Torsades de pointes Status: Acute Category: Medical Code(s): I47.2 - Ventricular tachycardia (3) Third degree atrioventricular block determined by electrocardiography Status: Acute Category: Med
--- NOTE | 2020-07-07 10:56 | CT_ITS ---
PROCEDURE: CT ELBOW LT WO CON CLINICAL HISTORY: fracture Clean dislocation Fx left elbow New pacemaker COMPARISON: No exams were available for comparison TECHNIQUE: Axial images obtained with sagittal and coronal reformats. All CT scans at the facility use one or more dose reduction, viz: automated exposure control, ma/kV adjustment per patient size (including targeted exams where dose is matched to indication, i.e. head), or iterative reconstruction technique. FINDINGS: There is avulsion fracture involving the lateral epicondyle measuring 14 x 2 mm minimally displaced laterally with overlying soft tissue swelling. 5 mm avulsion fracture involves the tip of the olecranon process without displacement. The radial head and neck has an unremarkable appearance with no other significant anomalies evident. No evidence of dislocation. Study is somewhat limited technically due to the patient's inability to be properly position with the elbow in flexion and by the patient's side IMPRESSION: Avulsion fracture of the lateral epicondyle and olecranon process as described Dictated by: Bernabe Casper MD 07/08/2020 10:30 Bernabe Casper MD in [place] 07/08/2020 10:30
--- NOTE | 2020-07-07 11:02 | HMH.OTEV ---
OT Inpatient Evaluation Rehab OT IP Evaluation Start: 07/07/20 09:34 Freq: ONCE Status: Complete Protocol: Document 07/07/20 10:51 PARAG (Rec: 07/07/20 11:02 [facility] [id number]) Rehab OT IP Assessment Subjective History Pt is a 75 yo female. Pt fell resulting in L elbow dislocation. Pt is R handed. Pt reports that she lives at home by herself. Her December 2019. Pt reports that she is independent in completing all ADLs and IADLs. Pt plans for her daughter to assist her at home after discharge. Pt's medical history includes: hyperlipidemia, HTN, internal pacemaker, and renal insufficiency. Subjective I'm a tough old bird. Objective Patient Orientation Person,Place,Birthday Upper Extremity Gross ROM Sev Limitation >75% Elbow ROM Limitations Pain Bed Mobility bed mobility-scooting,bed mobility - supine/sit,bed mobility - rolling Assist Level Supervision/Stand by Transfer Training Sit/Stand/Step Transfer Assist Level Contact Guard/Hand Hold Rehab OT IP prob,goals,plan Problems Date of Evaluation: 07/07/20 OT IP Problems Balance,Self care,Safety Rehab Potential Rehab Potential Good Plan OT intervention Plan Balance,Self care,Safety, Therapeutic Exercise OT Plan Frequency BID Duration LOS Discharge Goals Bed Mobility Ability Independent Sit to Stand Chair Transfer Ability Supervision/Stand by Chair Transfer Ability Supervision/Stand by Chair Transfer Technique Sit to/from Ambulatory Chair Transfer Assistive Devices Straight Cane Feeding Ability Assist with Tray Set Up Lower Body Dressing Ability Assistance X1 Upper Body Dressing Ability Assistance X1 Bathing Ability Assistance x1 Performing Toilet Hygiene Ability Standby Assistance Overall Commode/Toilet Transfer Ability Independent Commode/Toilet Transfer Technique Sit to/from Ambulatory decrease in endurance Yes Discharge Plan OT Discharge Plan Pt is safe to discharge to home with supervision once deemed medically stable. Pt reports
--- NOTE | 2020-07-07 11:17 | HMH.PTEV ---
Physical Therapy Evaluation Rehab PT IP Evaluation Start: 07/07/20 09:33 Freq: .once Status: Active Protocol: Document 07/07/20 11:11 CRISTEL (Rec: 07/07/20 11:17 [facility]ST[facility] [id number]) Subjective/History History History This is the initial IP PT evalaution for Brianna Aguilar - Pt suffered a fall at home where she lost balance. Pt reports she felt sharp apin in her L elbow and came to ER. While pt was in ER she had significant cardiac istress and required resuscitation and pacemaker/internal defib placement. Subjective Subjective Pt reports she is not allowed to lift LUE above shoulder d/t pacemaker placement Rehab PT IP Eval Objective Appearance Patient Behavior Appropriate,Cooperative Patient Orientation Place,Name,Birthday,Year Difficulty following instructions none Speech Pattern Clear,Appropriate Ambulation Patient Able to Ambulate Yes Ambulation Observation IP General Gait Pattern Observation No Deviations/Normal Ambulation Distance (feet) 50 Ambulation Assistive Device None Ambulation Ability Independent,Supervision/Stand by Balance Ability to Arise Able, uses arms to help Sitting Balance Steady, safe Standing Balance Steady, wide stance Dynamic Sitting Balance Ability Normal Dynamic Standing Balance Ability Good Transfers Bed Transfer Ability Independent,Supervision/Stand by Chair Transfer Ability Independent,Supervision/Stand by Sit to Stand Bed Transfer Ability Independent Sit to Stand Chair Transfer Ability Independent ROM LUE PT ROM Status ABN Abnormal ROM Comment cardiac and orthopedic precautions Rehab PT IP prob,goals,plan Problems Date of Evaluation: 07/07/20 Rehab Potential Rehab Potential Innapropriate for Skilled Therapy Discharge Plan PT Discharge Plan Pt is independent w/ transfers and mobility - at this time she does not require skilled therapy and is capable of returning home w/ assistance/ supervision once medically stable. If pt requires
--- NOTE | 2020-07-07 12:42 | HMH.ORTHOCON ---
*Admission Date: 07/06/20 *Reason for consult:: Elbow dislocation, left *History of present illness: 75-year-old ambidextrous female presented to the emergency department yesterday afternoon with left elbow injury after a fall. Her younger son is by her bedside at the time of examination. She says she was walking in her driveway when she turned, lost her balance and fell to the ground. She had immediate pain and deformity around her left elbow. She says she was unable to straighten her arm. Assessment in the ER showed a posterior lateral elbow dislocation which was reduced by the ER physician. At the same time she was also noted to have bradycardia and had a cardiac arrest while in the ER. She was taken to the [facility] emergently and had a pacemaker placed. Today patient says she is doing fairly well and reports mild to moderate elbow pain worse with attempted movements and occasional muscle spasms. No history of any numbness, weakness, tingling in her left hand. No history of any previous problems with the elbow. No history of any head injury or back injury. She reports no pain anywhere else and no other injuries in the fall. No history of any recent syncopal episodes or falls. No preceding chest pain, palpitations, shortness of breath, other concerns. Patient generally enjoys good health. She sees a physician in [place] yearly, history of hypertension and dyslipidemia. No cardiac history. Lives in [facility], . [facility] History I have reviewed the patient's past medical history: Yes Medical History: Reports:: Hyperlipidemia, Hypertension, Internal Pacemaker, Renal Insufficiency Denies:: Cancer, Diabetes Mellitus Type 1, Diabetes Mellitus Type 2, MRSA *Have you ever received a pneumonia vaccine?: Yes *Have you received a flu vaccine this season?: No Other Medical History: Reports: Arthritis, Cataracts Anesthesia experience/problems:: nac Laterality Cases: Left: Arthroscopy Knee Other Surgeries: Yes: Pacemaker, Other Amputation: No - *Social History Last grade of school completed: High school graduate Smoking Status: Never smoker Alcohol Intake: never Substance Use Type: denies use *Occupational Status:: retired Household Members: none *Travel in the last 8 weeks: None Family Hx:: Asthma, Diabetes Review of Systems - Review of Systems Review of systems:: pertinent systems reviewed and negative unless documented below - Constitutional Denies chills, Denies fever(s) - Eyes Denies change in vision - ENT Denies abnormal hearing - *Cardiovascular Denies chest pain, Denies shortness of breath - *Respiratory Denies chest congestion, Denies shortness of breath - *Gastrointestinal Denies abdominal pain, Denies change in bowel habits - *Musculoskeletal Reports joint pain, Reports deformity, Denies abnormal walking - *Neurologic Reports abnormal walking, Reports dizziness, Reports fainting, Denies abnormal hearing, Denies abnormal speech, Denies behavioral changes, Denies numbness, Denies weakness - Psychiatric Denies abnormal sleep pattern, Denies confusion - Endocrine Denies cold intolerance, Denies heat intolerance - Hematologic/Lymphatic Denies easy bleeding, Denies easy bruising Meds Home Medications Medication Instructions Recorded Confirmed Type Simvastatin [Zocor 20mg] 20 mg PO HS 07/06/20 07/06/20 History gemfibroziL [Gemfibrozil] 600 mg PO BID 07/06/20 07/07/20 History lisinopriL [Lisinopril] 20 mg PO DAILY 07/06/20 07/06/20 History Allergies Allergy/AdvReac Type Severity Reaction Status Date / Time codeine Allergy Verified 07/06/20 13:41 Exam Vital signs and Labs for Last 24 Hours: Temp Pulse Resp BP Pulse Ox 98.4 F 71 16 181/76 H 97 07/07/20 08:00 07/07/20 08:00 07/07/20 08:00 07/07/20 08:00 07/07/20 08:00 Laboratory Results - last 24 hr 07/06/20 13:19: WBC 14.8 H, RBC 4.22, Hgb 12.5, Hct 39.3, MCV 93.2, MCH 29.5, MCHC 31.7 L, RDW 14.0, Plt Count 396,
--- NOTE | 2020-07-07 18:41 | PC.NURSE ---
Pt is A&Ox4. Sling has remained in place this shift, and LUE elevated. Pt has had no c/o pain, SOB this shift. PAcemaker dressing remains CDI. No other acute changes or complaints at this time.
[2020-07-08] VITALS (29 sets, daily range): BP systolic 137–198; BP diastolic 62–96; PULSE 50–62; RESP 12–22; TEMP 36.7–37.7; O2SAT 90–98; BMI 36.0
--- NOTE | 2020-07-08 | IR_ITS ---
APPROVED REPORT Patient Location: Inpatient Urgent Care Physician: CYNTHIA Puente RT (R) PROCEDURES Left heart catheterization Left ventriculogram Selective coronary angiogram INDICATION Sudden cardiac Informed consent was obtained prior to the procedure. COMPLICATIONS None Estimated Blood Loss: Less than 10 mls TECHNIQUE One percent lidocaine used to anesthetize the right anterior aspect of the wrist. The right radial artery was accessed via the Seldinger technique. A 6 Tajik sheath was placed in the right radial artery. 2.5 mg of verapamil, 800 mcg of nitroglycerin, 1mg Lidocaine and 5000 U Heparin were given through the arterial sheath. A long 23 cm hydrophilic sheath was required to traverse the tortuous radial artery the Poppa catheter was also used to perform left heart catheterization, left ventriculogram and selective coronary angiogram. At the end of the procedure the sheath was removed good hemostasis was achieved using Traclet band, patient was transferred to the postop holding area in stable condition. ANGIOGRAPHIC RESULTS The left main artery Normal The left anterior descending artery Normal The circumflex artery Normal The right coronary artery Dominant normal The YANEZ ventriculogram reveals Not performed The left ventricular end-diastolic pressure Not measured IMPRESSION Normal coronary arteries PLAN 1. Treat hypertension 2. Renal duplex due to persistent severe hypertension also looking for renal cell carcinoma 3. Patient requires up titration of beta-blockers due to ventricular fibrillation Electronically signed by : Taurus Galeano, 07/08/2020 10:47:53
--- NOTE | 2020-07-08 07:00 | PC.NURSE ---
Patient VS WNL throughout shift. NPO after midnight, consent form signed for Heart Cath. Shows no s/s of acute distress noted at this time. Call light within reach, bed at lowest level for safety. Will continue to monitor.
--- NOTE | 2020-07-08 08:52 | HMH.PNCARD ---
Subjective Date: 07/08/20 Time: 08:52 Principal diagnosis: Syncope Interval history: 75-year-old white female in bed in no acute distress. Some discomfort of the left arm and elbow related to dislocation and fall. The AICD site looks good with no complaints from patient. Reviewed recommendation for left heart catheterization today patient is agreeable to proceed. Patient states that she was in the process of walking up her driveway to get into her car to go visit her neighbor when the next thing she remembers was waking up on the ground. She denies any prior chest pain, pressure, tightness or palpitations. Exam Vital signs and Labs for Last 24 Hours: Temp Pulse Resp BP Pulse Ox 98.3 F 60 17 160/89 H 95 07/08/20 04:00 07/08/20 04:00 07/08/20 04:00 07/08/20 04:00 07/08/20 04:00 I & O for Last 24 hours: Intake & Output 07/05/20 07/06/20 07/07/20 07/08/20 11:59 11:59 11:59 11:59 Intake Total 300 / 300 840 / 840 Balance 300 / 300 840 / 840 Weight 167 lb 2 oz 183 lb 8 oz - Constitutional no acute distress Comments: Left arm in sling related to AICD implantation. - *Routine HEENT Exam Head: Present: normocephalic Eye: Present: EOMI, PERRL ENT: Present: mucous membranes moist - *Routine Neck Exam Present: supple. Absent: lymphadenopathy - *Routine Respiratory Exam Present: CTA bilaterally - *Routine Cardiovascular Exam Present: RRR - *Routine Abdominal Exam Present: soft, normoactive bowel sounds. Absent: tenderness - *Routine Extremities Exam Absent: cyanosis, clubbing, edema - *Routine Skin Exam Present: warm. Absent: rash - *Routine Neurological Exam Present: alert, oriented X3 Progress Note: A&P (1) Sudden cardiac arrest Status: Acute (2) Torsades de pointes Status: Acute (3) Third degree atrioventricular block determined by electrocardiography Status: Acute (4) Dislocation of left elbow Status: Acute (5) Olecranon fracture Status: Acute (6) Hypertension Status: Acute (7) CKD (chronic kidney disease) stage 3, GFR 30-59 ml/min Status: Acute Assessment and Plan for All Diagnoses:: Proceed with left heart catheterization today. Pending results, patient could likely be discharged home later today a.m. Follow up in one week. Home med recommendations: Bisoprolol 10 mg daily Zocor 20 mg daily gemfibrozil 600 mg BID Lisinopril 20 mg daily
--- NOTE | 2020-07-08 09:25 | HMH.ACPN2 ---
Internal Medicine - PN: Subj *Date: 07/08/20 *Time: 08:30 Interval history: pt states doing well Exam Vital signs and Labs for Last 24 Hours: Temp Pulse Resp BP Pulse Ox 98.3 F 60 17 160/89 H 95 07/08/20 04:00 07/08/20 04:00 07/08/20 04:00 07/08/20 04:00 07/08/20 04:00 I & O for Last 24 hours: Intake & Output 07/05/20 07/06/20 07/07/20 07/08/20 11:59 11:59 11:59 11:59 Intake Total 300 / 300 840 / 840 Balance 300 / 300 840 / 840 Weight 167 lb 2 oz 183 lb 8 oz - Constitutional no acute distress - *Routine HEENT Exam Head: Present: normocephalic Eye: Present: PERRL ENT: Present: mucous membranes moist - *Routine Neck Exam Present: supple. Absent: lymphadenopathy - *Routine Respiratory Exam Present: CTA bilaterally - *Routine Cardiovascular Exam Present: RRR Comments: pacemaker - *Routine Abdominal Exam Present: soft, normoactive bowel sounds. Absent: tenderness - *Routine Extremities Exam Absent: cyanosis, clubbing, edema - *Routine Skin Exam Present: warm. Absent: rash - *Routine Neurological Exam Present: alert, oriented X3 - Routine Psychiatric Exam Present: normal affect Assessment and Plan (1) Sudden cardiac arrest Status: Acute Category: Medical Code(s): I46.9 - Cardiac arrest, cause unspecified (2) Torsades de pointes Status: Acute Category: Medical Code(s): I47.2 - Ventricular tachycardia (3) Third degree atrioventricular block determined by electrocardiography Status: Acute Category: Medical Code(s): I44.2 - Atrioventricular block, complete (4) Dislocation of left elbow Status: Acute Category: Medical Code(s): S53.105A - Unspecified dislocation of left ulnohumeral joint, initial encounter (5) Olecranon fracture Status: Acute Category: Medical Code(s): S52.023A - Displaced fracture of olecranon process without intraarticular extension of unspecified ulna, initial encounter for closed fracture (6) Hypertension Status: Acute Category: Medical Code(s): I10 - Essential (primary) hypertension (7) CKD (chronic kidney disease) stage 3, GFR 30-59 ml/min Status: Acute Category: Medical Code(s): N18.30 - Chronic kidney disease, stage 3 unspecified - Assessment and plan all Dx Assessment and Plan for all problems:: rounded with dr quinteros all order per dr quinteros heart cath today
--- NOTE | 2020-07-08 10:26 | PC.NURSE ---
Pt off floor to lab aide at this time.
--- NOTE | 2020-07-08 20:17 | PC.NURSE ---
Pt's BP has been elevated this afternoon. This RN did call and make Dr. Obrien aware and he ordered to give lisinopril 20 mg 2000 dose early and cont to mx. This nurse did give dose and BP is stable at this time - 170/90. Have given report to RN. Pt alert and oriented and denies pain. has done well since having heart cath this shift. Dsg is CDI to R wrist. Pacer dsg to LUIS A chest is cdi. L arm has been elevated this shift and had no problems. CB in reach.
[2020-07-09] VITALS (22 sets, daily range): BP systolic 105–219; BP diastolic 59–138; PULSE 60–63; RESP 17–20; TEMP 36.7–37.7; O2SAT 60–100; BMI 36.3
--- NOTE | 2020-07-09 | IR_ITS ---
APPROVED REPORT Patient Location: Inpatient Quilting Machine Operator: CYNTHIA Puente RT (R) PROCEDURES Bilateral selective renal angiogram Bare-metal stent deployment to the left ostial proximal renal artery INDICATION Renovascular hypertension, Renal artery stenosis, Abnormal renal duplex demonstrating greater than 60% stenosis Informed consent was obtained prior to the procedure. COMPLICATIONS NONE Estimated Blood Loss: LESS THAN 10 MLS TECHNIQUE 1% lidocaine used to anesthetize the right femoral groin. The right femoral artery was accessed via the Seldinger technique. A 4 Haitian sheath was placed in the right femoral artery. The JR4 catheter was used to selectively intubate each renal artery. At the end the diagnostic procedure therapeutic heparin was administered and the 4 Haitian sheath was exchanged for a 7 Haitian sheath. Short MADDOX guide catheter was placed into the left renal artery and a BMW wire was placed distally. A 6 mm x 12 mm Herculink stent was deployed initially at 12 mayur reducing the stenosis. The balloon was reinserted and deployed at 20 mayur to post dilate. After achieving excellent angiographic results the apparatus was removed the groin was reprepped gloves were changed sheath was removed and hemostasis achieved using Perclose device patient was transferred to the postop holding area stable condition ANGIOGRAPHIC RESULTS The right renal artery singular normal The left renal artery singular and has an ostial 80 to 90% stenosis IMPRESSION Severe left renal artery stenosis Successful stenting of left renal artery severe disease reduced to 0% with 1 bare-metal stent PLAN 1. Dual antiplatelet therapy for 1 month then drop the P2 Y 12 inhibitor and continue aspirin 81 mg daily 2. Treatment of hypertension Electronically signed by : Taurus Galeano, 07/09/2020 14:15:26
--- NOTE | 2020-07-09 06:00 | PC.NURSE ---
PT HAS SLEPT MOST OF THE NIGHT,HAS HAD ELEVATED B/P'S,LAST ONE 182/78 MANUALLY.PT DENIED ANY PAIN JUST SORENESS IN LEFT ELBOW FROM FRACTURE. AND RIGHT SIDE.THIS MORNING C/O PAIN AND SWELLING IN LEFT ARM AND HAND WAS MEDICATED WITH A PERCOCET 5MG PO AND APPLIED ICE PACK TO HAND AND REPORTS FEELS MUCH BETTER,WILL CONTINUE TO MONITOR NO DRAINAGE TO DRESSING FROM PACEMAKER SITE AND NO DRAINAGE TO RIGHT WRIST FROM HEART CATH
--- NOTE | 2020-07-09 08:00 | CA_ITS ---
APPROVED REPORT Carton Liner: Shivani Plummer RVT Study Quality: Good Indications: Persistent HTN Risk Factors Hypertension Hyperlipidemia Obesity Renal Artery Doppler Origin (R) 143.1/ cm/sec Proximal (R) 164.1/ cm/sec Distal (R) 190.7/ cm/sec Renal Aorta Ratio (R) 1.64 Segmental A. (R) 57.0/23.8 cm/sec RI: 0.58 Segmental A. Sup (R) 57.0/23.8 cm/sec Segmental A. Mid (R) 51.5/8.9 cm/sec Segmental A. Inf (R) 33.7/11.9 cm/sec Origin (L) 227.7/ cm/sec Proximal (L) 234.6/ cm/sec Mid (L) 314.9/ cm/sec Distal (L) 153.1/ cm/sec Renal Aorta Ratio (L) 2.71 Segmental A. (L) 55.1/8.5 cm/sec RI: 0.84 Segmental A. Sup (L) 55.1/8.5 cm/sec Segmental A. Mid (L) 53.8/14.8 cm/sec Segmental A. Inf (L) 44.5/11.7 cm/sec Renal Measurements Kidney Size (R) 11.2x6.4 cm Cortical Thickness (R) 1.0 cm Kidney Size (L) 9.3x6.7 cm Cortical Thickness (L) 2.7 cm Findings Study suggests less than 60% stenosis of the right renal artery. Study suggests greater than 60% stenosis of the left renal artery. Conclusion Study suggests less than 60% stenosis of the right renal artery. Study suggests greater than 60% stenosis of the left renal artery. Electronically signed by : Bernabe Casper MD 07/09/2020 12:48:58
[2020-07-09 08:06] LABS: Basophils # 0.1 K/mm3 (0-0.2); Basophils % 0.5 % (0.1-2.0); Eosinophils # 0.2 K/mm3 (0.0-0.4); Eosinophils % 1.9 % (0.1-12.0); Hematocrit 31.4 % (37.0-47.0); Hemoglobin 10.4 g/dL (12.2-16.2); Lymphocytes % 16.1 % (10-50); Mean Corpuscular Volume 87.9 fl (81-99); Mean Platelet Volume 8.8 fl (7.4-10.4); Monocytes # 0.7 K/mm3 (0.1-1.0); Monocytes % 5.3 % (1.7-9.3); Neutrophils # 9.5 K/mm3 (1.8-7.8); Neutrophils % 76.2 % (37.0-80.0); Platelet Count 244 K/mm3 (142-424); Red Blood Count 3.57 M/mm3 (4.20-5.40); Red Cell Distribution Width 14.2 % (11.5-17.5); White Blood Count 12.4 K/mm3 (4.8-10.8)
--- NOTE | 2020-07-09 08:33 | HMH.PNCARD ---
Subjective Date: 07/09/20 Time: 08:33 Principal diagnosis: Syncope Interval history: 75-year-old white female in bed in no acute distress. Blood pressure improved but not to goal. Patient tolerating up titration of medications. Renal duplex has been performed with results pending. Telemetry shows no episodes of ventricular tachycardia. Exam Vital signs and Labs for Last 24 Hours: Temp Pulse Resp BP Pulse Ox 98.0 F 60 19 182/78 H 92 L 07/09/20 04:00 07/09/20 04:00 07/09/20 04:00 07/09/20 04:00 07/09/20 04:00 Laboratory Results - last 24 hr 07/09/20 07:55: WBC 12.4 H D, RBC 3.57 L, Hgb 10.4 L, Hct 31.4 L, MCV 87.9, MCH 29.0, MCHC 33.0, RDW 14.2, Plt Count 244, MPV 8.8, Neut % (Auto) 76.2, Lymph % (Auto) 16.1, [place] % (Auto) 5.3, Eos % (Auto) 1.9, Baso % (Auto) 0.5, Neut # (Auto) 9.5 H, Lymph # (Auto) 2.0, [place] # (Auto) 0.7, Eos # (Auto) 0.2, Baso # (Auto) 0.1 I & O for Last 24 hours: Intake & Output 07/06/20 07/07/20 07/08/20 07/09/20 11:59 11:59 11:59 11:59 Intake Total 300 / 300 840 / 840 240 / 240 Balance 300 / 300 840 / 840 240 / 240 Weight 167 lb 2 oz 183 lb 8 oz 185 lb 7 oz - Constitutional no acute distress - *Routine HEENT Exam Head: Present: normocephalic Eye: Present: EOMI, PERRL ENT: Present: mucous membranes moist - *Routine Neck Exam Present: supple. Absent: lymphadenopathy - *Routine Respiratory Exam Present: CTA bilaterally - *Routine Cardiovascular Exam Present: RRR - *Routine Abdominal Exam Present: soft, normoactive bowel sounds. Absent: tenderness - *Routine Extremities Exam Absent: cyanosis, clubbing, edema - *Routine Skin Exam Present: warm. Absent: rash - *Routine Neurological Exam Present: alert, oriented X3 Progress Note: A&P (1) Sudden cardiac arrest Status: Acute (2) Torsades de pointes Status: Acute (3) Third degree atrioventricular block determined by electrocardiography Status: Acute (4) Dislocation of left elbow Status: Acute (5) Olecranon fracture Status: Acute (6) Hypertension Status: Acute (7) CKD (chronic kidney disease) stage 3, GFR 30-59 ml/min Status: Acute Assessment and Plan for All Diagnoses:: 1. Sudden cardiac arrest with documented torsades and third-degree heart block. Status post BiV AICD implantation. 2. Hypertension, renal duplex pending. Continue current medications. 3. CKD, stage III Anticipate discharge home later today if blood pressure remains at current level or improved with early follow-up in the office next week.
[2020-07-09 08:37] LABS: Chloride 112 mmol/L (98-107); Sodium 140 mmol/L (136-145)
[2020-07-09 08:41] LABS: Blood Urea Nitrogen 17 mg/dl (7-17); Calcium 9.2 mg/dl (8.4-10.2); Carbon Dioxide 21 mmol/L (22.0-30.0); Creatinine Clearance Estimated 64 mL/min (50-200); Estimated Glomerular Filt Rate 61 ml/min (>60); GFR (African American) 74 ML/MIN (>60); Glucose 96 mg/dl (74-100)
--- NOTE | 2020-07-09 12:58 | P.PN_ITS ---
Subjective Date: 07/09/20 Time: 12:15 Principal diagnosis: Elbow dislocation, left Interval history: Patient is status post closed reduction of left elbow dislocation 3 days ago. She is in a long-arm posterior splint. Patient is admitted to the cardiac problems and underwent emergency pacemaker placement and subsequently cardiac catheterization yesterday. He says he is doing well with regards to her left elbow. She reports minimal pain around the left elbow. No history of any distal tingling or numbness. PN: Obj Ex Vital signs: Temp Pulse Resp BP Pulse Ox 98.7 F 60 17 199/105 H 90 L 07/09/20 11:34 07/09/20 12:00 07/09/20 11:34 07/09/20 11:34 07/09/20 11:34 Narrative: Laboratory Results - last 24 hr 07/09/20 07:55: WBC 12.4 H D, RBC 3.57 L, Hgb 10.4 L, Hct 31.4 L, MCV 87.9, MCH 29.0, MCHC 33.0, RDW 14.2, Plt Count 244, MPV 8.8, Neut % (Auto) 76.2, Lymph % (Auto) 16.1, [place] % (Auto) 5.3, Eos % (Auto) 1.9, Baso % (Auto) 0.5, Neut # (Auto) 9.5 H, Lymph # (Auto) 2.0, [place] # (Auto) 0.7, Eos # (Auto) 0.2, Baso # (Auto) 0.1 07/09/20 07:55: Sodium 140, Potassium 4.0, Chloride 112 H, Carbon Dioxide 21 L, Anion Gap 11.0, BUN 17, Creatinine 0.90, Estimated Creat Clear 64, Estimated GFR 61, Est GFR ( Amer) 74, Glucose 96, Calcium 9.2 Exam General appearance: alert, active, awake, no acute distress Cardiovascular: regular rate & rhythm, normal peripheral pulses Respiratory: No respiratory distress noted, speaks in full sentences ABD: soft and non tender Neuro: alert, awake, oriented x 3 Psych: Appropriate mood and affect On examination of the left upper extremity, a posterior long-arm splint is in place. There is minimal swelling of the left hand. She has good range of active finger movements. Distal neurovascular status is intact. Progress Note: A&P (1) Sudden cardiac arrest Status: Acute (2) Torsades de pointes Status: Acute (3) Third degree atrioventricular block determined by electrocardiography Status: Acute (4) Dislocation of left elbow Status: Acute (5) Olecranon fracture Status: Acute (6) Hypertension Status: Acute (7) CKD (chronic kidney disease) stage 3, GFR 30-59 ml/min Status: Acute Assessment and Plan for All Diagnoses:: I have reviewed the clinical findings and progress with the patient. Patient is doing well from an orthopedic standpoint and no active inpatient orthopedic intervention is required at present. Advised her to elevate the limb, ice the elbow frequently and mobilize the fingers actively. Follow-up in my office in 1 weeks? time with check x-ray. Please feel free to call our office at [phone] for any orthopaedic questions or concerns. Continue medical management as per Dr. Auguste.
[2020-07-09 14:37] LABS: CATHL Activated Clotting Time 209 SEC (74-125)
--- NOTE | 2020-07-09 16:35 | HMH.ACPN2 ---
Internal Medicine - PN: Subj *Date: 07/10/20 *Time: 09:15 Interval history: doing better - bp up and will have renal duplex this am Exam Vital signs and Labs for Last 24 Hours: Temp Pulse Resp BP Pulse Ox 98.7 F 60 18 196/97 H 100 07/09/20 11:34 07/09/20 14:35 07/09/20 14:35 07/09/20 14:35 07/09/20 14:35 Laboratory Results - last 24 hr 07/09/20 07:55: WBC 12.4 H D, RBC 3.57 L, Hgb 10.4 L, Hct 31.4 L, MCV 87.9, MCH 29.0, MCHC 33.0, RDW 14.2, Plt Count 244, MPV 8.8, Neut % (Auto) 76.2, Lymph % (Auto) 16.1, [place] % (Auto) 5.3, Eos % (Auto) 1.9, Baso % (Auto) 0.5, Neut # (Auto) 9.5 H, Lymph # (Auto) 2.0, [place] # (Auto) 0.7, Eos # (Auto) 0.2, Baso # (Auto) 0.1 07/09/20 07:55: Sodium 140, Potassium 4.0, Chloride 112 H, Carbon Dioxide 21 L, Anion Gap 11.0, BUN 17, Creatinine 0.90, Estimated Creat Clear 64, Estimated GFR 61, Est GFR ( Amer) 74, Glucose 96, Calcium 9.2 07/09/20 15:08: Activated Clotting Time 209 H* I & O for Last 24 hours: Intake & Output 07/07/20 07/08/20 07/09/20 07/10/20 11:59 11:59 11:59 11:59 Intake Total 300 / 300 840 / 840 480 / 480 120 / 120 Balance 300 / 300 840 / 840 480 / 480 120 / 120 Weight 167 lb 2 oz 183 lb 8 oz 185 lb 7 oz - Constitutional no acute distress, obese - *Routine HEENT Exam Head: Present: normocephalic Eye: Present: EOMI, PERRL ENT: Present: mucous membranes dry - *Routine Neck Exam Present: supple. Absent: JVD - *Routine Respiratory Exam Present: CTA bilaterally - *Routine Cardiovascular Exam Present: RRR, murmur - *Routine Abdominal Exam Present: soft - *Routine Extremities Exam Absent: calf tenderness - *Routine Skin Exam Present: intact - *Routine Neurological Exam Present: alert, oriented X3, CN II-XII intact. Absent: motor deficit - Routine Psychiatric Exam Present: normal affect Assessment and Plan (1) Sudden cardiac arrest Status: Acute Category: Medical Code(s): I46.9 - Cardiac arrest, cause unspecified (2) Torsades de pointes Status: Acute Category: Medical Code(s): I47.2 - Ventricular tachycardia (3) Third degree atrioventricular block determined by electrocardiography Status: Acute Category: Medical Code(s): I44.2 - Atrioventricular block, complete (4) Dislocation of left elbow Status: Acute Category: Medical Code(s): S53.105A - Unspecified dislocation of left ulnohumeral joint, initial encounter (5) Olecranon fracture Status: Acute Category: Medical Code(s): S52.023A - Displaced fracture of olecranon process without intraarticular extension of unspecified ulna, initial encounter for closed fracture (6) Hypertension Status: Acute Category: Medical Code(s): I10 - Essential (primary) hypertension (7) CKD (chronic kidney disease) stage 3, GFR 30-59 ml/min Status: Acute Category: Medical Code(s): N18.30 - Chronic kidney disease, stage 3 unspecified (8) Obesity (BMI 30-39.9) Status: Acute Category: Medical Code(s): E66.9 - Obesity, unspecified (9) Renal artery stenosis Status: Acute Category: Medical Code(s): I70.1 - Atherosclerosis of renal artery
--- NOTE | 2020-07-09 19:25 | PC.NURSE ---
PATIENT IS A&O X4, DOPPLER USED FOR PULSE ON LEFT RADIAL. PULSES EQUAL. PATIENT HAD SEVERAL ASSESSMENTS OF HIGH BLOOD PRESSURE. 10:00 AM THIS RN NOTIFIED DAXA DOWNING OF PATIENT HIGH BLOOD PRESSURE, BISOPROLOL 10MG ORDERED. THIS RN UNABLE TO ADMINISTER DUE TO TESTS. THIS RN SPOKE WITH DAXA DOWNING IN REGARDS TO ADMINISTRATION OF BISOPROLOL BEFORE PATIENT WENT TO PATIENT LIAISON FOR RENAL STENT, PER [place], HOLD BISOPROLOL. PATIENT ARRIVED BACK ON FLOOR 1515, THIS RN WAS INSTRUCTED TO ADMINISTER BISOPROLOL. AT 1645 THIS RN SPOKE WITH DR. LIM IN REGARDS TO PATIENT BP IN 200/100. ORDERED 40 MG PO LISINOPRIL BID AND 10MG PO AMLODIPINE 10MG PO BID. AT 1635 PATIENT BP WAS 163/74. PATIENT AMBULATED TO RESTROOM AND TOLERATED WELL. NO NEW CONCERNS AT THIS TIME.
--- NOTE | 2020-07-09 22:22 | PC.NURSE ---
She is A&Ox4. She reports pain in her left thumb and rates 7/10. 2+ non-pitting edema present to left hand. LUE is wrapped in NANDA bandage and LUE is elevated. Capillary refill <3. She reports that she last had a BM a couple days ago but she states she will not have another until she is discharged home. Pacemaker site DSG is C/D/I. No bruising or swelling around the site. Right femoral cath site DSG is C/D/I. No bruising or swelling present at that site. She ambulated to the bathroom with standby assist.
[2020-07-10] VITALS: PULSE 60
[2020-07-10 04:00] VITALS: BP 141/66; PULSE 60; PULSE 96; RESP 16; TEMP 37.1; O2SAT 96
[2020-07-10 05:08] VITALS: BMI 35.9
[2020-07-10 08:00] VITALS: BP 188/79; PULSE 60; RESP 18; TEMP 37; O2SAT 94
--- NOTE | 2020-07-10 09:24 | [facility].DCSUM ---
General - General Admission date:: 07/06/20 Discharge date: 07/10/20 HPI HPI: 75-year-old female presenting to the emergency department with left arm pain after a fall. She was walking in her driveway when she turned, lost her balance and fell to the ground. She had immediate pain near her left elbow. Unable to straighten her arm. Pain is described as sharp and intense. Located more on the medial epicondyle but radiating into her upper arm and her forearm. No numbness, weakness, tingling in her left hand. She is right-handed. Did not strike her head. No other injuries in the fall. Has not taken any medications for pain. Denies recent syncopal episodes. No preceding chest pain, palpitations, shortness of breath, other concerns. The above per ER MD, Dr. Morales While in ER (per nursing notes): pt noted to be in a run of torsades on the monitor at the desk staff to pts room, CPR initiated, pt moved to larger room, placed on zoll monitor with defib pads in place, ER MD at . Pulse checked when defib pads were in place, pulse present, pt HR noted to be 200 on monitor, pt has agonal respirations, BVM breaths given per staff. at pulse check, pt HR noted to be 41, atropine 1mg given per IV, IVF initiated. Pt more alert, breathing on her own, O2 per NC in place at 2L new ekg performed. EKG's show third degree AV block with rates in the 30's. Cardiology called with plans for BiV AICD today. above is per cardiology Patient generally enjoys good health. She sees a physician in [place] yearly, history of hypertension and dyslipidemia. No cardiac history. Lives in [facility], . Hospital Course Hospital Course: pt has did well and was seen by card -d degree heart block, Sudden cardiac arrest Additional Medical History:: 1. Sudden cardiac arrest/torsades de pointes/third degree AV block A. BiV AICD, 07/06/2020 2. Syncope with left ulna/radius dislocation and possible avulsion fracture of olecranon and epicondyle, 07/06/2020 3. S/p Left total knee replacement 4. HTN 5. Hyperlipidemia History of present illness: 75-year-old female presenting to the emergency department with left arm pain after a fall. She was walking in her driveway when she turned, lost her balance and fell to the ground. She had immediate pain near her left elbow. Unable to straighten her arm. Pain is described as sharp and intense. Located more on the medial epicondyle but radiating into her upper arm and her forearm. No numbness, weakness, tingling in her left hand. She is right-handed. Did not strike her head. No other injuries in the fall. Has not taken any medications for pain. Denies recent syncopal episodes. No preceding chest pain, palpitations, shortness of breath, other concerns. The above per ER MD, Dr. Morales While in ER (per nursing notes): pt noted to be in a run of torsades on the monitor at the desk staff to pts room, CPR initiated, pt moved to larger room, placed on zoll monitor with defib pads in place, ER MD at BS. Pulse checked when defib pads were in place, pulse present, pt HR noted to be 200 on monitor, pt has agonal respirations, BVM breaths given per staff. at pulse check, pt HR noted to be 41, atropine 1mg given per IV, IVF initiated. Pt more alert, breathing on her own, O2 per NC in place at 2L new ekg performed. EKG's show third degree AV block with rates in the 30's. Cardiology called with plans for BiV AICD today. -year-old female presented to the [facility] after experiencing syncopal episode at home. Patient was noted at that time to have a heart rate in the 30s. While in the ED, knotter hand revealed third-degree heart block, torsades de pointes which led to sudden cardiac arrest. Patient underwent BIV AICD placement due to third-degree heart block. Patient is alert and oriented appropriately x4. Patient denies chest pain, tightness or pressure. Patient is resting quie
--- NOTE | 2020-07-10 10:11 | HMH.PHACLD ---
Brianna Aguilar has received discharge medication counseling on the following medications: ASPIRIN, PLAVIX, LISINOPRIL, BISOPROLOL, AND SIMVASTATIN. PATIENT WILL BE USING MEDS TO BEDS. ALL NEW PRESCRIPTIONS WERE PRINTED. PATIENT VERBALIZED UNDERSTANDING. ALL QUESTIONS WERE ANSWERED. -JUAN MIGUEL PINO, MITCHELLD
[2020-07-10 12:00] VITALS: BP 105/79; PULSE 60; RESP 18; TEMP 36.8; O2SAT 96
--- NOTE | 2020-07-10 13:43 | PC.NURSE ---
THIS RN PROVIDED CARDIAC EDUCATION, SURGICAL SITE INFECTION PREVENTION AND NEW MEDICATIONS TO TAKE TO PATIENT AND PATIENT'S DAUGHTER. PACEMAKER SITE AND RIGHT GROIN SITE DRESSING ARE CLEAN, DRY AND INTACT. NO CONCERNS AT D/C.
== END 2020-07-10 13:35 | disposition home or self-care (01) | DRG 224 ==
LOC: ER 16:09 → 2ND 16:45
PROVIDERS: Internal Medicine; Admitting Provider Family Medicine; Emergency Provider Emergency Medicine; Visit Provider Family Medicine
PROC: 0JH609Z Insertion of Cardiac Resynchronization Defibrillator Pulse Generator into Chest Subcutaneous Tissue and Fascia, Open Approach (ICD-10-PCS; CPT 33249; principal; 2020-07-06 15:00)
PROC: 4A023N7 Measurement of Cardiac Sampling and Pressure, Left Heart, Percutaneous Approach (ICD-10-PCS; principal; 2020-07-08 11:30)
PROC: 04HA3DZ Insertion of Intraluminal Device into Left Renal Artery, Percutaneous Approach (ICD-10-PCS; principal; 2020-07-09 13:15)
DX: I44.2 Atrioventricular block, complete (principal); I46.9 Cardiac arrest, cause unspecified; I47.2 Ventricular tachycardia; N18.30 Chronic kidney disease, stage 3 unspecified; W01.0XXA Fall on same level from slipping, tripping and stumbling without subsequent striking against object, initial encounter; Y92.014 Private driveway to single-family (private) house as the place of occurrence of the external cause; I15.0 Renovascular hypertension; I70.1 Atherosclerosis of renal artery; S52.025A Nondisplaced fracture of olecranon process without intraarticular extension of left ulna, initial encounter for closed fracture; S53.122A Posterior subluxation of left ulnohumeral joint, initial encounter
CPT/HCPCS: 24605; 29125; 33249; 36251; 36415; 37236; 71045; 73060; 73070; 73080; 73200; 73590; 80048; 80053; 83735; 84100; 84484; 85025; 85347; 86328; 93005; 93306; 93458; 93976; 96365; 96367; 96375; 97161; 97166; 97530; 99152; 99153; 99284; C1725; C1760; C1769; C1876; C1882; C1894; C1895; C1898; C1900; J1644; J2405; Q9967; U0003

== ENCOUNTER → 2020-07-13 13:33 | Outpatient (CLI) | payer MEDICARE, SELFPAY ==
--- NOTE | 2020-07-13 13:38 | XR_ITS ---
PROCEDURE: XR ELBOW LT MIN 3V CLINICAL INDICATION: left elbow dislocation follow up Follow-up dislocation, pain COMPARISON: CR XR ELBOW LT MIN 3V from 07/06/2020 CR XR ELBOW LT 2V from 07/06/2020 CR XR ELBOW LT MIN 3V from 07/06/2020 FINDINGS: Avulsion fracture is noted involving the lateral malleolus as previously described. The fracture fragment is displaced laterally approximately 3 mm. The fracture fragment measures 13 mm. Avulsion fractures also noted involving the tip of the olecranon process. Faint calcification is present along the anterior aspect of the antecubital fossa. There is also faint calcification noted in the soft tissues at the medial malleolar region. Soft tissue swelling is present about the elbow. IMPRESSION: No change avulsion fracture of the lateral epicondyle and olecranon tip with generalized soft tissue swelling Dictated by: Bernabe Casper MD 07/13/2020 14:29 Bernabe Casper MD in [place] 07/13/2020 14:29
== END ==
PROVIDERS: Visit Provider Orthopaedic Surgery
DX: S53.105A Unspecified dislocation of left ulnohumeral joint, initial encounter (principal)
CPT/HCPCS: 73080

== ENCOUNTER → 2020-07-20 12:01 | Outpatient (CLI) | payer MEDICARE, SELFPAY ==
--- NOTE | 2020-07-20 12:07 | XR_ITS ---
PROCEDURE: XR ELBOW LT MIN 3V CLINICAL INDICATION: Lt elbow dislocation COMPARISON: CR XR ELBOW LT MIN 3V from 07/06/2020 CR XR ELBOW LT 2V from 07/06/2020 FINDINGS: The previously dislocated elbow has been reduced to normal anatomic alignment. There is a tiny avulsion flake fracture of the lateral epicondyle. The radial head and olecranon fossa appear intact. A posterior splint is seen in place. IMPRESSION: Stable reduced dislocated left elbow Dictated by: Dr. Doug Spivey MD 07/20/2020 12:27 Dr. Doug Spivey MD in [place] 07/20/2020 12:27
== END ==
PROVIDERS: PCP Family Medicine; Visit Provider Orthopaedic Surgery
DX: S53.105A Unspecified dislocation of left ulnohumeral joint, initial encounter (principal)
CPT/HCPCS: 73080

== ENCOUNTER 2020-07-20 13:43 | Outpatient (RCR) | payer MEDICARE, SELFPAY | END 2020-07-20 14:20 | disposition home or self-care (01) | LOC: OT 13:43 | PROVIDERS: Visit Provider Orthopaedic Surgery | DX: S53.142A Lateral subluxation of left ulnohumeral joint, initial encounter (principal) | CPT/HCPCS: 97763 ==

== ENCOUNTER → 2020-08-17 12:51 | Outpatient (CLI) | payer MEDICARE, SELFPAY ==
--- NOTE | 2020-08-17 12:56 | XR_ITS ---
PROCEDURE: XR ELBOW LT MIN 3V CLINICAL INDICATION: follow up dislocation COMPARISON: CR XR ELBOW LT MIN 3V from 07/20/2020 FINDINGS: The tiny avulsion flake fracture of the lateral epicondyle again noted with some faint callus formation at the fracture site. Mild diffuse soft tissue swelling of the elbow medially. The radial head and olecranon fossa again appear grossly normal. IMPRESSION: Post reduced elbow dislocation, possible early healing of the avulsion flake fracture lateral epicondyle of the humerus Dictated by: Dr. Doug Spivey MD 08/17/2020 13:18 Dr. Doug Spivey MD in [place] 08/17/2020 13:18
[2020-08-17 18:20] LABS: Chloride 105 mmol/L (98-107); Sodium 142 mmol/L (136-145)
[2020-08-17 18:23] LABS: Alanine Aminotransferase 9 U/L (12-78); Albumin Level 4.5 g/dl (3.5-5.0); Albumin/Globulin Ratio 1.5 (1.1-1.8); Alkaline Phosphatase 139 U/L (38-126); Aspartate Amino Transferase 48 U/L (14-36); Bilirubin,Total 0.6 mg/dl (0.2-1.3); Blood Urea Nitrogen 27 mg/dl (7-17); Calcium 10.7 mg/dl (8.4-10.2); Carbon Dioxide 24 mmol/L (22.0-30.0); Estimated Glomerular Filt Rate 48 ml/min (>60); GFR (African American) 58 ML/MIN (>60); Globulin 3.1 g/dL (1.3-3.2); Glucose 96 mg/dl (74-100); Total Protein,Serum 7.6 g/dl (6.3-8.2)
== END ==
PROVIDERS: PCP Family Medicine; Visit Provider Orthopaedic Surgery
DX: S53.105A Unspecified dislocation of left ulnohumeral joint, initial encounter (principal)
CPT/HCPCS: 73080; 80053

== ENCOUNTER → 2020-08-17 17:55 | Outpatient (CLI) | payer MEDICARE, SELFPAY | PROVIDERS: Visit Provider Family Medicine | DX: S53.105A Unspecified dislocation of left ulnohumeral joint, initial encounter (principal) | CPT/HCPCS: 73080; 80053 ==

== ENCOUNTER → 2021-03-29 14:46 | Outpatient (CLI) | payer MEDICARE, SELFPAY ==
[2021-03-29 15:43] LABS: Anion Gap 12.9 mEq/L (5-15); Blood Urea Nitrogen 19 mg/dl (7-17); Calcium 10.1 mg/dl (8.4-10.2); Carbon Dioxide 27 mmol/L (22.0-30.0); Chloride 104 mmol/L (98-107); Chol/HDL Ratio 3.7 (1-3.5); Cholesterol 161 mg/dl (140-200); Estimated Glomerular Filt Rate 61 ml/min (>60); GFR (African American) 74 ML/MIN (>60); Glucose 82 mg/dl (74-100); HDL Cholesterol 44 mg/dl (40-60); Potassium 3.9 mmoL/L (3.5-5.1); Sodium 140 mmol/L (136-145); Triglycerides 85 mg/dl (30-150); VLDL Cholesterol 17 mg/dL (0-40)
== END ==
PROVIDERS: Visit Provider Family Medicine
DX: I10 Essential (primary) hypertension (principal)
CPT/HCPCS: 80048; 80061